=== PATIENT | female | born 1945 | race Hispanic/Latino ===

== ENCOUNTER 2018-09-19 05:26 | Outpatient (CLI) | payer MEDICARE | END 2018-09-19 05:27 | disposition home or self-care (01) | LOC: PET-BROA 05:26 | DX: H35.89 Other specified retinal disorders (principal); C80.1 Malignant (primary) neoplasm, unspecified ==

== ENCOUNTER 2018-10-07 07:28 | Day surgery (SDC) | payer MEDICARE ==
[2018-10-02 15:23] VITALS: BMI 20.9
[2018-10-07 08:28] VITALS: O2SAT 99
[2018-10-07] MEDS ORDERED: Sodium Chloride 0.9% 1,000 ML IV SCH (09:45)
[2018-10-07] MEDS ORDERED: Propofol 10 mg/ml Inj (20 ML) ONE ×2 (09:55→10:15)
[2018-10-07 10:54] VITALS: RESP 18
[2018-10-07 15:14] VITALS: BP 141/66; PULSE 76; TEMP 98.1
== END 2018-10-07 13:08 | disposition home or self-care (01) ==
LOC: ENDO 07:28
PROVIDERS: ATTEND Internal Medicine Gastroenterology
DX: Z12.11 Encounter for screening for malignant neoplasm of colon (principal); K64.1 Second degree hemorrhoids; Q43.8 Other specified congenital malformations of intestine; K29.70 Gastritis, unspecified, without bleeding; K44.9 Diaphragmatic hernia without obstruction or gangrene; K20.9 Esophagitis, unspecified; K29.80 Duodenitis without bleeding; H35.30 Unspecified macular degeneration; Z98.49 Cataract extraction status, unspecified eye
CPT/HCPCS: 45378; J2001; J2704; J7030